=== PATIENT | female | born 1995 | race Caucasian/White ===

== ENCOUNTER 2017-01-11 10:23 | Emergency (ER) | payer BC ==
[~2017-01-11 10:23] MED LIST: PREN1CAP PO; ZANT150T2 PO; ZOFR4TAB3 SL; ZOFR8TAB PO
--- NOTE | 2017-01-11 11:29 | PD ---
HPI Chief Complaint Decreased movement Date Seen: Jan 11, 2017 Time Seen: 11:26 Travel History International Travel<30 Days: No Contact w/Intl Traveler<30Days: No Known Affected Area: No History of Present Illness HPI 21-year-old primigravida at 33 weeks gestation who [facility]. She had a nonreactive NST there. She reports improved movement now since having had something to eat. She denies leakage of fluid, bleeding or contractions. History Past Medical History Medical History: Denies Significant Hx Past Surgical History Surgical History: No Previous Surgery Family History Family History: Negative Social History Alcohol Use: No Tobacco Use: No Substance Abuse: No Allergies-Medications (Allergen,Severity, Reaction): Coded Allergies: atropine (Verified Allergy, Unknown, 01/11/17) diphenoxylate (Verified Allergy, Unknown, 01/11/17) Home Meds Active Scripts Ondansetron (Zofran) 8 Mg Tab, 8 MG PO QD for Nausea/Vomiting, #7 TAB Prov:Eugenia Velásquez CNM [facility] 12/31/16 Ondansetron Odt (Zofran Odt) 4 Mg Tab, 4 MG SL Q6HR Y for Nausea/Vomiting, #30 TAB 0 Refills Prov:Jelly MonzonP 12/05/16 Ranitidine (Zantac) 150 Mg Tab, 150 MG PO BID for Reduce Stomach Acid, #60 TAB 4 Refills Prov:Jelly MonzonP 11/26/16 Vit W/ Fe Polysacch C (Vitafol Ultra 29-0.6-0.4-200 mg) 1 Cap Cap, 1 TAB PO DAILY, #30 BOTTLE 11 Refills Prov:Jelly MonzonP 10/23/16 Review of Systems Except as stated in HPI: all other systems reviewed are Neg Physical Exam Narrative GENERAL: Well-nourished, well-developed patient. SKIN: Warm and dry. HEAD: Normocephalic and atraumatic. EYES: No scleral icterus. No injection or drainage. ENT: No nasal drainage noted. Mucous membranes pink. Airway patent. NECK: Supple, trachea midline. No JVD. CARDIOVASCULAR: Regular rate and rhythm without murmurs, gallops, or rubs. RESPIRATORY: Breath sounds equal bilaterally. No accessory muscle use. BREASTS: Bilateral exam showed no masses , no retractions, no nipple discharge. ABDOMEN/GI: Abdomen soft, non-tender, bowel sounds present, no rebound, no guarding Gravid to [-] weeks size Fundal Height: [-] GENITOURINARY: External Genitalia: intact and normal in appearance BUS glands: [-] Cervix: [-] Dilatation: [-] Effacement: [-] Station: [-] Presentation: [-] Membranes: [intact or ruptured] Uterine Contractions: [-] FHT's: Category: [1-] Baseline: [-] Reactive: [-Yes] Variability: [-] Decels: [-] EXTREMITIES: No cyanosis or edema. BACK: Nontender without obvious deformity. No CVA tenderness. NEUROLOGICAL: Awake and alert. Motor and sensory grossly within normal limits. Five out of 5 muscle strength in all muscle groups. Normal speech. Data Data Vital Signs Reviewed: Yes MDM Medical Record Reviewed: Yes Narrative Course / MDM Assessment: 33 week intrauterine with category 1 heart rate and reactive NST Plan: Follow up for routine care, movement counts were instructed. Diagnosis Diagnosis: Primary Impression: 33 weeks gestation of Additional Impression: Decreased movement affecting management of in third trimester Disposition: 01 DISCHARGE HOME Justino Mccord MD Jan 11, 2017 11:28
== END 2017-01-11 11:38 | disposition home or self-care (01) ==
LOC: HOBED 10:23
DX: O36.8130 Decreased fetal movements, third trimester, not applicable or unspecified (principal); Z3A.33 33 weeks gestation of pregnancy
CPT/HCPCS: 99284; J3010

== ENCOUNTER 2017-01-15 18:35 | Emergency (ER) | payer BC ==
--- NOTE | 2017-01-15 19:52 | PD ---
HPI Chief Complaint Leaking of fluid Travel History International Travel<30 Days: No Contact w/Intl Traveler<30Days: No Known Affected Area: No History of Present Illness HPI 21-year-old , IUP at 33.3 care uncomplicated per patient report The patient presents complaining of a small squirt of clear fluid without odor that happened this evening when she was lying on the couch. She reports that this drain down her legs but she's had no leaking of fluid since that time. She reports that she got up to use the bathroom immediately following this episode and was able to urinate a large amount. She denies any urinary complaints or symptoms. She denies any further leaking of fluid. She denies any vaginal bleeding. She denies any uterine contractions or cramping. She reports good movement. She denied intercourse in the past 2 days. She has no other complaints. Weeks Gestation: 33 Para: 0 : 1 History Past Medical History Medical History: Denies Significant Hx Obstetric History Obstetric History Past Surgical History Surgical History: No Previous Surgery Family History Narrative Family History CT, lung cancer, lymphoma Social History Alcohol Use: No Tobacco Use: No Substance Abuse: No Allergies-Medications (Allergen,Severity, Reaction): Coded Allergies: atropine (Verified Allergy, Unknown, 01/11/17) diphenoxylate (Verified Allergy, Unknown, 01/11/17) Home Meds Active Scripts Ondansetron (Zofran) 8 Mg Tab, 8 MG PO QD for Nausea/Vomiting, #7 TAB Prov:Eugenia Velásquez CNMP 12/31/16 Ondansetron Odt (Zofran Odt) 4 Mg Tab, 4 MG SL Q6HR Y for Nausea/Vomiting, #30 TAB 0 Refills Prov:Jelly Monzon 12/05/16 Ranitidine (Zantac) 150 Mg Tab, 150 MG PO BID for Reduce Stomach Acid, #60 TAB 4 Refills Prov:Jelly Monzon 11/26/16 Vit W/ Fe Polysacch C (Vitafol Ultra 29-0.6-0.4-200 mg) 1 Cap Cap, 1 TAB PO DAILY, #30 BOTTLE 11 Refills Prov:Jelly Monzon 10/23/16 Reported Medications Metronidazole (Flagyl) 500 Mg Tab, 500 MG PO BID NEB for Infection, TAB 0 Refills 01/15/17 Review of Systems Except as stated in HPI: all other systems reviewed are Neg Physical Exam Narrative GENERAL: Well-nourished, well-developed patient. SKIN: Warm and dry. HEAD: Normocephalic and atraumatic. EYES: No scleral icterus. No injection or drainage. ENT: No nasal drainage noted. Mucous membranes pink. Airway patent. NECK: Supple, trachea midline. No JVD. CARDIOVASCULAR: Regular rate and rhythm without murmurs, gallops, or rubs. RESPIRATORY: Breath sounds equal bilaterally. No accessory muscle use. BREASTS: Deferred ABDOMEN/GI: Abdomen soft, non-tender, bowel sounds present, no rebound, no guarding Gravid GENITOURINARY: External Genitalia: intact and normal in appearance. Normal BUS. Speculum examination was performed with no evidence of gross rupture of membrane. Some slightly increased thin oliva discharge was noted. A fibronectin was obtained, amniosure obtained, and wet prep obtained. Cervix was visually closed. No blood was noted. There were no cervical or vaginal masses noted, normal rugated was noted. SVE closed/thick/high/posterior/firm. FHT's: heart tones were in the 130s with moderate long-term variability, good accelerations, no decelerations noted. The heart rate tracing is reactive for gestational age. heart rate tracing is reassuring and appropriate for gestational age. Some uterine irritability was initially noted however this resolved spontaneously with by mouth hydration. EXTREMITIES: No cyanosis or edema. BACK: Nontender without obvious deformity. No CVA tenderness. NEUROLOGICAL: Awake and alert. Motor and sensory grossly within normal limits. Five out of 5 muscle strength in all muscle groups. Normal speech. Psychiatric: Grossly normal memory and affect Musculoskeletal: Grossly normal range of motion, gait, muscle strength Data Data Orders Orders Vital Signs (Adult) .ON ADMISSION (01/15/17 19:51) ^ Labor Status (01/15/17 19:51) Urinalysis - C+S If Indicated (01/15/17 19:51) ^ Hydration (01/15/17 19:51) Fibronectin (01/15/17 19:51) Wet Prep Profile (01/15/17 19:51) Pamg-1 Test .ONCE (01/15/17 19:51) MDM Plan Assessment/plan: 1. IUP at 33 weeks 2. Leaking of fluid: No evidence of PROM, no evidence of labor. fibronectin was negative, amniosure was negative, and cervix was closed and thick. Uterine irritability resolved with by mouth hydration. Strict labor and PPROM precautions. 3. UA - 4. Bacterial vaginosis: Wet prep showed clue cells with evidence of vaginal bacterial vaginosis. This is explained to the patient and she was given a prescription for Flagyl 500 mg by mouth twice a day 5. well-being: Reassuring testing with reactive NST and heart rate that is reassuring and appropriate for gestational age. kick counts daily 6. Follow up with primary OB in 2-3 days or sooner if needed Diagnosis Diagnosis: Primary Impression: 33 weeks gestation of Additional Impression: False labor before 37 completed weeks of gestation during in third trimester, antepartum Disposition: 01 DISCHARGE HOME Jelly Lawson MD Jan 15, 2017 19:52
[2017-01-15 20:28] LABS: BACTERIA, URINE RARE /hpf; BLOOD, URINE NEG (NEG); COMMENT (UR) CULT NOT INDICATED; CULTURE IF INDICATED CULT NOT INDICATED; GLUCOSE,URINE NEG (NEG); KETONE, URINE NEG (NEG); NITRITE,URINE NEG (NEG); SQUAMOUS EPITHELIAL CELL URINE 2 /hpf (0-5); URINE COLOR LIGHT-YELLOW (YELLW/STRAW)
[2017-01-15] MEDS ORDERED: METR-1 PO (21:08)
== END 2017-01-15 22:00 | disposition home or self-care (01) ==
LOC: HOBED 18:35
DX: O42.913 Preterm premature rupture of membranes, unspecified as to length of time between rupture and onset of labor, third trimester (principal); O23.593 Infection of other part of genital tract in pregnancy, third trimester; N76.0 Acute vaginitis; Z3A.33 33 weeks gestation of pregnancy
CPT/HCPCS: 59025; 81001; 82731; 84112; 87210